=== PATIENT | male | born 1960 | race Caucasian/White ===

== ENCOUNTER 2019-05-21 12:34 | Inpatient (IN) | payer BC ==
[~2019-05-21] VITALS: Ht 177.8 cm; Wt 111.0 kg
[~2019-05-21 12:34] MED LIST: ALEVE 220MG220 MG PO; ASPIR-LOW81 MG PO; FOLIC ACID0.4 MG PO; HYDROCODONE/APAP; IRON FERROUS S325 MG PO; LOPRESSOR 550 MG/TAB PO; LOVASTATIN10 MG PO; MULTI VITAMINS1 TAB PO; NORCO 325 MG-7.1 TAB PO; VITAMIN C500 MG PO; ZANTAC 150MG T150 MG PO; ZYRTEC5 MG PO; [UNRECOGNIZED DRUG - OTHER]
[2019-07-15] MEDS ORDERED: ALEVE 220MG220 MG PO (01:31)
[2019-07-15] MEDS ORDERED: PRILOSEC 20MG20 MG PO (01:32)
[2019-07-16] VITALS (12 sets, daily range): BP systolic 128–1448; BP diastolic 71–97; PULSE 62–105; TEMP 97.4–98.3
--- NOTE | 2019-07-16 11:39 | NUR ---
PT TO ROOM 329 PER BED WITH REPORT FROM [email or web address]. PT IS A/O X3, VSS, DRESSING TO RIGHT KNEE CDI WITH OCCLUSIVE GREGORIO WRAP OVER INCISION. ICE BAG INPLACE. SCDS BILATERAL OVER TEDS. IV TO PUMP PER ORDERS. PT TOLERATED WELL AND DENIES PAIN AT THIS TIME.
--- NOTE | 2019-07-16 13:35 | NUR ---
SW met with the patient to discuss discharge plan. The patient lives in [place] with his daughter, Katty (ph#[phone]). He reports independence with ADLs and has a walker and crutches. The patient's PCP is Dr. Gordon Adkins and he receives his medications at [facility]. He reports no difficulties obtaining his meds. The patient does not have advanced directives and he was not interested in completing them at this time. The patient plans to return home with his daughter and receive outpatient PT at [facility] in [place] upon discharge. No additional needs at this time.
--- NOTE | 2019-07-16 16:44 | NUR ---
PT UP WITH THERAPY AMBULATED IN [facility] WITH STEADY GAIT.
--- NOTE | 2019-07-16 21:15 | NUR ---
Pt. laying in bed at this time. Pt. is A&OX3, assessment complete. IV to lt. hand patent, IV fluids infusing per orders. Dressing to RTK CDI. Pt. reports pain at a 5 on pain scale, Pain meds given per orders. Pt. ambulated in the haddad with [employer]PER[employer] this evening, Pt. tolerated well. Pt. denies further needs, Call light within reach.
[2019-07-17 04:55] VITALS: BP 151/73; PULSE 91; TEMP 98.2
[2019-07-17 08:25] LABS: HEMOGLOBIN 12.1 g/dl (13.5-18.0)
[2019-07-17 09:32] VITALS: BP 159/84; PULSE 81; TEMP 97.8
--- NOTE | 2019-07-17 09:48 | NUR ---
PT OUT TO [facility] AMBULATING WELL. PAIN WELL CONTROLLED WITH PO MEDS. DRESSING CHANGE COMPLETE, INCISON WELL APPROXIMATED NO DRAINAGE NOTED. PT TOLERATED WELL.
[2019-07-17 12:02] VITALS: BP 165/86; PULSE 71; TEMP 99.5
[2019-07-17] MEDS ORDERED: ASPI325T6 PO (15:09)
[2019-07-17] MEDS ORDERED: ROXICODONE 55 MG/TAB PO (15:10)
[2019-07-17] MEDS ORDERED: ULTRAM 50MG TAB50 MG PO (15:10)
[2019-07-17] MEDS ORDERED: SENNA-S 50 MG-81 TAB PO (15:10)
--- NOTE | 2019-07-17 16:03 | NUR ---
DISCHARGE INSTRUCTIONS REVIEWED WITH PT AND FAMILY/ QUESTIONS SOLICITED AND ANSWERED. NEW ORDERS COMPLETE. PT VERBALIZED UNDERSTANDING.
== END 2019-07-17 15:45 | disposition home or self-care (01) | DRG 470 ==
LOC: JCC 07-16 05:05
PROVIDERS: ADMIT Orthopaedic Surgery
PROC: 0SRC0J9 Replacement of Right Knee Joint with Synthetic Substitute, Cemented, Open Approach (ICD-10-PCS; principal; 2019-07-16 08:00)
DX: M17.11 Unilateral primary osteoarthritis, right knee (principal); K21.9 Gastro-esophageal reflux disease without esophagitis; I10 Essential (primary) hypertension; E78.00 Pure hypercholesterolemia, unspecified; J30.2 Other seasonal allergic rhinitis; Z96.652 Presence of left artificial knee joint; Z90.89 Acquired absence of other organs
CPT/HCPCS: A9284; C1776; J0690; J1100; J1885; J2250; J2405; J2704; J3010; J7030; J7120